=== PATIENT | male | born 1990 | race African-American/Black ===

== ENCOUNTER 2021-12-26 14:18 | Emergency (ER) | payer OTHER ==
[~2021-12-26] VITALS: Ht 175.3 cm; Wt 90.9 kg
[2021-12-26 15:11] VITALS: BP 149/81
[2021-12-26] MEDS ORDERED: ACYC-138 PO (15:53)
[2021-12-30 10:22] LABS: HERPES SIMPLEX VIR II DNA NAA Negative (Negative)
== END 2021-12-26 17:32 | disposition home or self-care (01) ==
LOC: EMS 14:18
DX: N48.89 Other specified disorders of penis (principal)
CPT/HCPCS: 86592; 87255; 87529; 99283